=== PATIENT | male | born 1955 | race Caucasian/White ===

== ENCOUNTER 2021-07-26 13:57 | Emergency (ER) | payer OTHER ==
[~2021-07-26] VITALS: Ht 185.4 cm; Wt 100.0 kg
[2021-07-26 15:46] VITALS: BP 114/69
--- NOTE | 2021-07-26 16:13 | PHYS DOC ---
Past History Past Medical History: GERD, High Cholesterol, Hypertension, Prostatitis (PAPI GALICIA APRN) Past Surgical History: Appendectomy (PAPI GALICIA APRN) Smoking: Non-smoker Alcohol Use: Occasionally Drug Use: None (PAPI GALICIA APRN) General Adult EDM: Chief Complaint: BLOOD IN URINE HPI: HPI: Patient is a 66-year-old male that presents today with bleeding from his penis. Patient states that he was on a ladder today and he slipped on one of the rungs and fell down and landed directly on his knee him area, and he says since that time which was around 1130 he has had bleeding from his penis. Patient states that he attempted to void while here in the department and he had a blood clot that came from the urethral meatus. Patient is unable to void at this time. Patient states he takes an 81 mg aspirin a day he does not take any other blood thinning medications, his last time he had anything to drink was about an hour and a half ago he last ate at 1230 today. 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 [] HENT: Normocephalic, atraumatic, bilateral external ears normal, oropharynx moist, no oral exudates, nose normal. [] Eyes: PERRLA, EOMI, conjunctiva normal, no discharge. [] Neck: Normal range of motion, no tenderness, supple, no stridor. [] Cardiovascular:Heart rate regular rhythm, no murmur [] Lungs & Thorax: Bilateral breath sounds clear to auscultation [] Abdomen: Abdomen is tender to touch on the lower aspects, bowel sounds normal, soft, no masses, no pulsatile masses. [] Skin: Warm, dry, no erythema, no rash. [] Back: No tenderness, no CVA tenderness. [] Extremities: No tenderness, no cyanosis, no clubbing, ROM intact, no edema. [] Neurologic: Alert and oriented X 3, normal motor function, normal sensory function, no focal deficits noted. [] Psychologic: Affect normal, judgement normal, mood normal. [] : Blood noted at the urethral meatus, no scrotal lacerations noted, tenderness noted along the perineum area with a contusion noted. (PAPI GALICIA APRN) Current Patient Data: Vital Signs: Vital Signs Date Time Temp Pulse Resp B/P (MAP) Pulse Ox O2 Delivery O2 Flow Rate FiO2 07/26/21 15:46 97.8 87 18 114/69 (84) 96 Room Air (PAPI GALICIA APRN) EKG: EKG: [] (PAPI GALICIA APRN) Radiology/Procedures: Radiology/Procedures: [] (PAPI GALICIA APRN) Heart Score: C/O Chest Pain: N/A Risk Factors: Risk Factors: DM, Current or recent (<one month) smoker, HTN, HLP, family history of CAD, obesity. Risk Scores: Score 0 - 3: 2.5% MACE over next 6 weeks - Discharge Home Score 4 - 6: 20.3% MACE over next 6 weeks - Admit for Clinical Observation Score 7 - 10: 72.7% MACE over next 6 weeks - Early Invasive Strategies (PAPI GALICIA APRN) Course & Med Decision Making: Course & Med Decision Making Pertinent Labs and Imaging studies reviewed. (See chart for details) Patient is in need of a urethrogram, I spoke to radiology and they were unable to provide that service at this time, and with the urethral trauma that was noted I will contact to the [facility] for a transfer for urology services. 1610 call made to the [facility] transfer team spoke to the triage nurse George. Will await phone call back to see if they accept him as a transfer. 1620 patient is accepted as a transfer to the [facility] was accepted by mone Nelson, patient will be seen in the emergency department, [facility] was called for an emergent transfer for this patient. Transfer paperwork was signed by myself and the nurse caring for the patient here in the emergency department will call report to the ER. (PAPI GALICIA APRN) Dragon Disclaimer: Dragon Disclaimer: This electronic medical record was generated, in whole or in part, using a voice recognition dictation system. (PAPI GALICIA APRN) Attending Co-Sign The patient was seen and interviewed as well as examined at the bedside. The chart was reviewed. The case was discussed. Agree with the plan of care. (TONIA PIMENTEL DO) Departure Departure: Impression: Primary Impression: Penile trauma Qualified Codes: S39.94XA - Unspecified injury of external genitals, initial encounter Disposition: 02 SHORT TERM HOSPITAL Condition: GUARDED Referrals: ALENA NICHOLSON DO (PCP) PAPI GALICIA APRN Jul 26, 2021 16:13 TONIA PIMENTEL DO Jul 28, 2021 08:23
[2021-07-26 16:48] LABS: INFLUENZA A PATIENT NEGATIVE (NEGATIVE); INFLUENZA B PATIENT NEGATIVE (NEGATIVE)
== END 2021-07-26 16:41 | disposition short-term general hospital (02) ==
LOC: ER 13:57
DX: S30.0XXA Contusion of lower back and pelvis, initial encounter (principal); K21.9 Gastro-esophageal reflux disease without esophagitis; E78.00 Pure hypercholesterolemia, unspecified; I10 Essential (primary) hypertension; Z20.822 Contact with and (suspected) exposure to COVID-19; W11.XXXA Fall on and from ladder, initial encounter; Y93.89 Activity, other specified; Y92.89 Other specified places as the place of occurrence of the external cause; Y99.8 Other external cause status
CPT/HCPCS: 87428; 96374; 99285; J3010